=== PATIENT | male | born 2000 | race Hispanic/Latino ===

== ENCOUNTER 2022-10-28 09:37 | Emergency (ER) | payer BC ==
[~2022-10-28] VITALS: Ht 170.2 cm; Wt 71.0 kg
[2022-10-28] MEDS ORDERED: NAPROSYN500 MG PO (10:52)
== END 2022-10-28 11:09 | disposition home or self-care (01) ==
LOC: ED 09:37
DX: R10.12 Left upper quadrant pain (principal)
CPT/HCPCS: 36415; 71045; 74177; 80053; 81003; 83690; 85025; 99284-25; J1885; J7030; Q9967

== ENCOUNTER 2022-11-03 22:59 | Emergency (ER) | payer BC ==
[~2022-11-03] VITALS: Ht 170.2 cm; Wt 71.6 kg
[~2022-11-03 22:59] MED LIST: NAPROSYN500 MG PO
--- OUTSIDE RECORDS SUMMARY | 2022-11-03 23:07 | XMS ---
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 [facility] VISIT COUNT (12 MO.) 2 [facility] TOTAL 2 NOTE: Visits indicate total known visits. ED/UCC VISIT TRACKING (12 MO.) 11/03/2022 22:59 [facility] TYPE: Emergency COMPLAINT: - SOB 10/28/2022 09:38 [facility] TYPE: Emergency COMPLAINT: - L SIDE ABD PAIN DIAGNOSES: - Left upper quadrant pain INPATIENT VISIT TRACKING (12 MO.) No inpatient visits to display in this time frame [email or web address]
== END 2022-11-03 23:18 | disposition home or self-care (01) ==
LOC: ED 22:59
DX: R06.02 Shortness of breath (principal)
CPT/HCPCS: 99284